=== PATIENT | male | born 1990 | race Caucasian/White ===

== ENCOUNTER 2020-08-04 14:46 | Emergency (ER) | payer BC, SELFPAY ==
[2020-08-04] MEDS ORDERED: Proparacaine 0.5% Opth 15 ML BOT ONE ×2 (15:51→16:17)
[2020-08-04] MEDS ORDERED: Fluorescein Opthalmic Strip ONE ×2 (15:51)
== END 2020-08-04 16:45 | disposition home or self-care (01) ==
LOC: ERS 14:46
DX: S05.01XA Injury of conjunctiva and corneal abrasion without foreign body, right eye, initial encounter (principal); T15.11XA Foreign body in conjunctival sac, right eye, initial encounter; F17.220 Nicotine dependence, chewing tobacco, uncomplicated
CPT/HCPCS: 67938